=== PATIENT | male | born 1955 | race Caucasian/White ===

== ENCOUNTER 2016-11-28 16:32 | Outpatient (CLI) | payer MEDICARE ==
[2015-01-15 09:22] VITALS: BP 117/68
--- NOTE | 2016-11-29 00:50 | Diagnostic Imaging Report ---
ZACHARY FLAHERTY~ [facility] [address] [facility].[address] [address] ~ ~ ~ ~ Report Submission Date: November 28, 2016 5:05:16 PM CDT Patient ~ Study Name: MALAIKA URIOSTEGUI ~ Date: November 28, 2016 4:40:46 PM CDT ~ Modality Type: CR Gender: M ~ Description: CHEST : 53 ~ Institution: [facility] Physician: ZACHARY FLAHERTY ~ ~ ~ ~ Chest, PA and lateral, 3 images History: Shortness of breath Findings: No infiltrate, effusion or pneumothorax is present. Heart size, mediastinum and pulmonary vascularity are normal. Impression: No active disease. ~ Electronically signed on November 28, 2016 5:05:16 PM CDT by: Michele HOGAN
== END 2016-11-28 16:33 ==
LOC: RAD 16:32
PROVIDERS: ATTEND Physician Assistant
DX: R06.02 Shortness of breath (principal)
CPT/HCPCS: 71020

== ENCOUNTER 2016-12-30 12:57 | Outpatient (CLI) | payer MEDICARE ==
[2015-01-15 09:22] VITALS: BP 117/68
== END 2016-12-30 13:00 ==
LOC: CARD 12:57
PROVIDERS: ATTEND Internal Medicine Cardiovascular Disease
DX: R06.09 Other forms of dyspnea (principal); I10 Essential (primary) hypertension
CPT/HCPCS: G0463

== ENCOUNTER 2017-01-27 16:20 | Outpatient (CLI) | payer MEDICARE ==
[2015-01-15 09:22] VITALS: BP 117/68
--- NOTE | 2017-01-27 17:20 | Diagnostic Imaging Report ---
BÁRBARA GUTIÉRREZ~ [facility] [address] [facility] [address] [address] ~ ~ ~ ~ Report Submission Date: Jan 27, 2017 4:47:53 PM CDT Patient ~ Study Name: MALAIKA URIOSTEGUI ~ Date: Jan 27, 2017 4:26:12 PM CDT ~ Modality Type: CR Gender: M ~ Description: SHOULDER : 53 ~ Institution: [facility] Physician: BÁRBARA GUTIÉRREZ ~ ~ ~ ~ Examination: Plain film shoulder History: Fall Comparison exams: None provided Findings: 3 views of the shoulder demonstrate normal cortical margins.~ No evidence for fracture or dislocation. Acromioclavicular degenerative changes and spurring. No soft tissue abnormality Impression: Acromioclavicular joint degenerative spurring. ~No acute fracture. ~ Electronically signed on Jan 27, 2017 4:47:53 PM CDT by: Reuben HOGAN
== END 2017-01-27 16:21 ==
LOC: RAD 16:20
PROVIDERS: ATTEND Physician Assistant
DX: M25.512 Pain in left shoulder (principal)
CPT/HCPCS: 73030

== ENCOUNTER 2017-02-01 09:45 | Outpatient (CLI) | payer MEDICARE ==
[2015-01-15 09:22] VITALS: BP 117/68
--- NOTE | 2017-02-01 18:07 | Diagnostic Imaging Report ---
Name: MALAIKA URIOSTEGUI ~~ ~~ : 53 ~~ Acc #: [id number]~~ DOS: Feb 01, 2017 9:54:48 AM CDT ~~ Mod: MR ~~ Desc: MRI UP EXT JNT W/O CONTRAST 1 of 2 BÁRBARA GUTIÉRREZ~ [address] [address] ~ ~ ~ ~ Report Submission Date: Feb 01, 2017 2:22:43 PM CDT Patient ~ Study Name: MALAIKA URIOSTEGUI ~ Date: Feb 01, 2017 9:54:48 AM CDT ~ Modality Type: MR Gender: M ~ Description: MRI UP EXT JNT W/O CONTRAST : 53 ~ Institution: [facility] Physician: BÁRBARA GUTIÉRREZ ~ ~ ~ ~ Magnetic resonance imaging of the left shoulder without contrast History: Pain and limited range of motion after fall 2 weeks ago. Findings: Multiplanar magnetic resonance imaging of the left shoulder is performed without contrast and compared to the radiographs obtained 5 days ago. A type II curved acromion process and advanced acromioclavicular osteoarthritis are observed. There are full thickness supraspinatus tendon and infraspinatus tendon insertion tears with retraction to the glenoid rim. A long head biceps anchor tear is present with retraction of the tendon caudal to the bicipital groove. The teres minor and subscapularis tendons are intact. Large joint and bursal effusions freely communicate. There is no supraspinatus or infraspinatus muscle atrophy. There is deficiency of the superior glenoid labrum. The remaining labrum is intact. Impression: 1. Acute, markedly retracted supraspinatus, infraspinatus, and biceps anchor tears. 2. Large joint and bursal fusions. 3. Advanced acromioclavicular osteoarthritis. 4. Probable superior labral tear. ~ Electronically signed on Feb 01, 2017 2:22:43 PM CDT by: Anthony HOGAN
== END 2017-02-01 10:00 | disposition home or self-care (01) ==
LOC: RAD 09:45
PROVIDERS: ATTEND Physician Assistant
DX: M25.512 Pain in left shoulder (principal); W10.8XXA Fall (on) (from) other stairs and steps, initial encounter; Y93.9 Activity, unspecified; Y99.9 Unspecified external cause status
CPT/HCPCS: 73221

== ENCOUNTER 2017-07-01 14:41 | Outpatient (CLI) | payer MEDICARE ==
[2015-01-15 09:22] VITALS: BP 117/68
--- NOTE | 2017-07-01 15:36 | Diagnostic Imaging Report ---
[facility] [address] [facility].[address] [address] Report Submission Date: Jul 01, 2017 3:32:55 PM PROVIDER ENROLLMENT SPECIALIST Patient Study Name: MALAIKA URIOSTEGUI Date: Jul 01, 2017 3:08:27 PM PROVIDER ENROLLMENT SPECIALIST Modality Type: CR Gender: M Description: CHEST : 53 Institution: [facility] Physician: RAYNE TRUJILLO Examination: PA and lateral chest. History: Evaluate lung bennett. Comparison exam: 28 Nov 2016 Findings: PA lateral chest demonstrate a normal cardiac and mediastinal silhouette. Mild tortuosity of thoracic aorta. No focal infiltrate. No blunting of the costophrenic margins. Osseous structures are appropriate for age. Impression: No acute appearing pulmonary process. Electronically signed on Jul 01, 2017 3:32:55 PM PROVIDER ENROLLMENT SPECIALIST by: Reuben HOGAN
== END 2017-07-01 14:45 ==
LOC: RAD 14:41
PROVIDERS: ATTEND Family Medicine
DX: R05 Cough (principal)
CPT/HCPCS: 71020

== ENCOUNTER 2017-07-21 11:58 | Outpatient (CLI) | payer MEDICARE ==
[2015-01-15 09:22] VITALS: BP 117/68
== END 2017-07-21 12:00 ==
LOC: LAB 11:58
PROVIDERS: ATTEND Family Medicine
DX: E11.9 Type 2 diabetes mellitus without complications (principal)
CPT/HCPCS: 36415; 83036

== ENCOUNTER 2017-10-22 08:56 | Outpatient (CLI) | payer MEDICARE ==
[2015-01-15 09:22] VITALS: BP 117/68
[2017-10-22 10:11] LABS: eGFR (African) > 60; eGFR (Non-African) > 60
== END 2017-10-22 09:00 ==
LOC: LAB 08:56
PROVIDERS: ATTEND Family Medicine
DX: E11.9 Type 2 diabetes mellitus without complications (principal)
CPT/HCPCS: 36415; 80053; 80061; 83036

== ENCOUNTER 2017-11-24 15:56 | Outpatient (CLI) | payer MEDICARE ==
[2015-01-15 09:22] VITALS: BP 117/68
--- NOTE | 2017-11-24 18:25 | Diagnostic Imaging Report ---
RAYNE TRUJILLO [facility] [address] [facility].[address] [address] Report Submission Date: November 24, 2017 4:28:55 PM CDT Patient Study Name: MALAIKA URIOSTEGUI Date: November 24, 2017 4:00:26 PM CDT Modality Type: DX Gender: M Description: LOWER EXTREMITY : 53 Institution: [facility] Physician: RAYNE TRUJILLO Examination: Plain film right knee History: CHRONIC RIGHT KNEE PAIN X 6 MONTHS (Hx) Findings: 3 standing views of the right knee demonstrates mild patellar and tibial spine spurring. No fracture. No dislocation. No joint effusion. No soft tissue irregularity. Impression: No acute osseous abnormality Electronically signed on November 24, 2017 4:28:55 PM CDT by: Reuben HOGAN
== END 2017-11-24 16:00 ==
LOC: RAD 15:56
PROVIDERS: ATTEND Family Medicine
DX: M25.561 Pain in right knee (principal)
CPT/HCPCS: 73562

== ENCOUNTER 2018-06-07 11:05 | Outpatient (CLI) | payer MEDICARE ==
[2015-01-15 09:22] VITALS: BP 117/68
--- NOTE | 2018-06-07 14:51 | Diagnostic Imaging Report ---
RAYNE TRUJILLO [facility] [address] [facility].[address] [address] Report Submission Date: Jun 07, 2018 12:14:24 PM FEED MIXER Patient Study Name: MALAIKA URIOSTEGUI Date: Jun 07, 2018 11:10:43 AM FEED MIXER Modality Type: DX Gender: M Description: SHOULDER : 53 Institution: [facility] Physician: RAYNE TRUJILLO Right shoulder History: Pain after falling Three views of the right shoulder demonstrate mild hypertrophic in site of the supraspinatus tendon. The humeral head moves into internal and external rotation without evidence for acute fracture or dislocation. The AC joint is intact. Impression: Mild hypertrophic findings near the insertion site of the supraspinatus tendon. No acute osseous abnormality. Electronically signed on Jun 07, 2018 12:14:24 PM FEED MIXER by: Berkley HOGAN
== END 2018-06-07 11:06 ==
LOC: RAD 11:05
PROVIDERS: ATTEND Family Medicine
DX: M25.511 Pain in right shoulder (principal)
CPT/HCPCS: 73030

== ENCOUNTER 2018-12-14 10:07 | Outpatient (CLI) | payer MEDICARE ==
[2018-12-28 02:03] VITALS: BP 153/99
== END 2018-12-14 10:17 | disposition home or self-care (01) ==
LOC: RT 10:07
PROVIDERS: ATTEND Family Medicine
DX: R06.09 Other forms of dyspnea (principal)
CPT/HCPCS: 94010

== ENCOUNTER 2018-12-27 13:15 | Observation (INO) | payer MEDICARE ==
[2018-12-27] MEDS ORDERED: METOPROLOL TARTRATE 5 MG/5 ML VIAL IV ONE ×4 (13:41→14:06)
[2018-12-27] MEDS ORDERED: 0.9 % SODIUM CHLORIDE 1,000 ML IV ONE (13:50)
[2018-12-27 13:56] LABS: BASOPHILS % 0.4 % (0.0-1.5); NEUTROPHILS # 4.9 # k/uL (1.4-7.7)
[2018-12-27 14:21] LABS: eGFR (Non-African) > 60
--- NOTE | 2018-12-27 15:17 | Diagnostic Imaging Report ---
<p>Your browser does not support iframes.</p> RONAL CRAVEN (UPHOLSTERY CLEANER) - ER [facility] [address] [facility].[address] [address] Report Submission Date: Dec 27, 2018 2:48:51 PM CDT Patient Study Name: MALAIKA URIOSTEGUI Date: Dec 27, 2018 2:19:17 PM CDT Modality Type: DX Gender: M Description: CHEST 1VIEW : 53 Institution: [facility] Physician: RONAL CRAVEN (UPHOLSTERY CLEANER) - ER Examination: Portable chest History: Cough, hypoxia Comparison exam: None provided. Findings: Single view of the chest demonstrates a normal cardiac and mediastinal silhouette. Tortuous aorta. Chronic interstitial changes. Lung bennett without focal infiltrate. No blunting of the costophrenic margins. Osseous structures are appropriate for age. Impression: Chronic interstitial changes. No acute pulmonary process. Electronically signed on Dec 27, 2018 2:48:51 PM CDT by: Reuben HOGAN
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
[2018-12-27 17:12] VITALS: BMI 39.5
[2018-12-27] MEDS ORDERED: cefTRIAXone SODIUM 1 GM INJ ONE (18:06)
[2018-12-27] MEDS ORDERED: methylPREDNISolone SOD SUCC 125 MG/2 ML VIAL ONE (18:06)
[2018-12-27] MEDS ORDERED: 0.9 % SODIUM CHLORIDE 100 ML IV ONE (18:06)
[2018-12-27] MEDS ORDERED: 0.9 % SODIUM CHLORIDE 50 ML IV ONE (18:07)
[2018-12-27] MEDS: glipiZIDE 5 MG TABLET PO SCH (18:23)
[2018-12-27] MEDS: metFORMIN HCl 500 MG TABLET PO SCH (18:23)
[2018-12-27] MEDS ORDERED: 0.9 % SODIUM CHLORIDE 250 ML IV ONE (19:15)
[2018-12-27] MEDS: cefTRIAXone SODIUM 1 GM in 0.9 % SODIUM CHLORIDE 50 ML IV SCH (20:23)
[2018-12-27] MEDS: SALINE FLUSH 10 ML DISP.SYRIN IV SCH (20:23)
[2018-12-27] MEDS: IPRATROPIUM/ALBUTEROL SULFATE 3 ML AMPUL.NEB NEB SCH (21:00)
[2018-12-28] MEDS: METOPROLOL TARTRATE 25 MG TABLET PO SCH ×2 (00:55→08:55)
[2018-12-28 07:02] LABS: BASOPHILS % 0.3 % (0.0-1.5)
[2018-12-28 07:03] LABS: eGFR (Non-African) > 60
[2018-12-28] MEDS: metFORMIN HCl 500 MG TABLET PO SCH (08:09)
[2018-12-28] MEDS: glipiZIDE 5 MG TABLET PO SCH (08:09)
[2018-12-28] MEDS ORDERED: LISINOPRIL 10 MG TABLET PO SCH (09:00)
[2018-12-28] MEDS ORDERED: ATORVASTATIN CALCIUM 20 MG TABLET PO SCH (09:00)
[2018-12-28] MEDS: SALINE FLUSH 10 ML DISP.SYRIN IV SCH (09:02)
[2018-12-28] MEDS: IPRATROPIUM/ALBUTEROL SULFATE 3 ML AMPUL.NEB NEB SCH (09:02)
--- NOTE | 2018-12-28 09:33 | Discharge Summary ---
Discharge Summary - Discharge [facility] Admission Date: 12/27/18 Discharge Date: 12/28/18 Discharge To: Home Condition at Discharge: Stable Consultations this Visit: None Procedures this Visit: None Allergies/Adverse Reactions: Allergies Allergy/AdvReac Type Severity Reaction Status Date / Time No Known Drug Allergies Allergy Verified 12/27/18 13:48 Patient Problems: Current Active Problems Problem Status Onset Panlobular emphysema Acute Smoker Acute Supraventricular tachycardia by ECG Acute Discharge Summary: This is a 63 year old male who presented to the ER with c/o cough and shortness of breath. He has a history of COPD, and has a nebulizer at home, which he had been using very aggressively before coming in. He was noted to be in SVT in the ER, and was given 3 doses of IV metoprolol, and converted to a sinus rhythm, and stayed in this rhythm the duration of his stay. He was breathing much better with the addition of IV Rocephin, and IV solumedrol. He was discharge to home with resumption of his home medications, as well as adding metoprolol tartrate 25mg po BID, cefuroxime 250 mg po BID x 7 days and a medrol dose pack. He will follow up with Dr. Pete on December.
[2018-12-28] MEDS: cefTRIAXone SODIUM 1 GM in 0.9 % SODIUM CHLORIDE 50 ML IV SCH (10:33)
[2018-12-28 11:18] VITALS: BP 145/83
== END 2018-12-28 11:15 | disposition home or self-care (01) ==
LOC: ED 13:15 → SOUTH 15:29
PROVIDERS: ADMIT Family Medicine; ATTEND Family Medicine
DX: I47.1 Supraventricular tachycardia (principal); J43.1 Panlobular emphysema; F17.210 Nicotine dependence, cigarettes, uncomplicated
CPT/HCPCS: 36415; 71045; 80053; 84484; 85025; 93005; 99219; G0378; J0696; J2930; J3490; J7030; J7050; S1016

== ENCOUNTER 2018-12-31 09:55 | Outpatient (CLI) | payer MEDICARE ==
--- NOTE | 2018-12-31 13:41 | Diagnostic Imaging Report ---
RAYNE TRUJILLO [facility] [address] [facility].[address] [address] Report Submission Date: Dec 31, 2018 10:48:02 AM CDT Patient Study Name: MALAIKA URIOSTEGUI Date: Dec 31, 2018 10:04:33 AM CDT Modality Type: US Gender: M Description: : 53 Institution: [facility] Physician: RAYNE TRUJILLO Examination: Ultrasound right vein History: RLEV SWELLING Findings: Sonographic evaluation of the lower extremity right venous system from the groin to the popliteal fossa inclusive. Normal compressibility. No luminal filling defect. Normal waveforms and response to augmentation. No popliteal region fluid collection. Impression: No evidence for deep venous thrombosis. Electronically signed on Dec 31, 2018 10:48:02 AM CDT by: Reuben HOGAN
== END 2018-12-31 09:57 ==
LOC: RAD 09:55
PROVIDERS: ATTEND Family Medicine
DX: M79.89 Other specified soft tissue disorders (principal)
CPT/HCPCS: 36415; 83036; 93971

== ENCOUNTER 2019-05-12 13:17 | Outpatient (CLI) | payer MEDICARE | END 2019-05-12 13:22 | LOC: LAB 13:17 | PROVIDERS: ATTEND Internal Medicine | DX: I48.91 Unspecified atrial fibrillation (principal); Z79.01 Long term (current) use of anticoagulants | CPT/HCPCS: 36415; 85610 ==

== ENCOUNTER 2019-05-17 12:33 | Outpatient (CLI) | payer MEDICARE | END 2019-05-17 12:38 | LOC: LAB 12:33 | PROVIDERS: ATTEND Internal Medicine | DX: Z51.81 Encounter for therapeutic drug level monitoring (principal); Z79.01 Long term (current) use of anticoagulants; I48.91 Unspecified atrial fibrillation | CPT/HCPCS: 36415; 85610 ==

== ENCOUNTER 2019-05-26 13:42 | Outpatient (CLI) | payer MEDICARE | END 2019-05-26 13:47 | LOC: LAB 13:42 | PROVIDERS: ATTEND Internal Medicine | DX: Z79.01 Long term (current) use of anticoagulants (principal); I48.91 Unspecified atrial fibrillation | CPT/HCPCS: 36415; 85610 ==

== ENCOUNTER 2019-06-13 15:56 | Outpatient (CLI) | payer MEDICARE | END 2019-06-13 16:01 | LOC: LAB 15:56 | PROVIDERS: ATTEND Internal Medicine | DX: I48.91 Unspecified atrial fibrillation (principal); Z79.01 Long term (current) use of anticoagulants | CPT/HCPCS: 36415; 85610 ==